=== PATIENT | female | born 1945 | race Caucasian/White ===

== ENCOUNTER → 2022-02-16 | Outpatient (CLI) | payer OTHER ==
[~2022-02-16] MED LIST: AMLO5; ATOR40TA; BISHYD5; BISO5; OXYM.05NI; VIT1CAPS12
== END | disposition home or self-care (01) ==
LOC: LAB SHORT 08:18 → LAB 08:18
DX: N93.8 Other specified abnormal uterine and vaginal bleeding (principal)
CPT/HCPCS: 88305

== ENCOUNTER → 2022-02-16 | Outpatient (CLI) | payer OTHER ==
[2022-02-22 11:08] LABS: HPV 16 Negative (Negative); HPV 18 Negative (Negative); HPV OTHER HR TYPES Negative (Negative)
== END | disposition home or self-care (01) ==
LOC: LAB SHORT 12:00
PROVIDERS: Family Medicine
DX: Z12.4 Encounter for screening for malignant neoplasm of cervix (principal)
CPT/HCPCS: 87624; G0145

== ENCOUNTER 2022-05-11 12:31 | Day surgery (SDC) | payer OTHER ==
[~2022-05-11] VITALS: Ht 157.5 cm; Wt 69.7 kg
--- NOTE | 2022-05-11 14:28 | NUR ---
05/11/22 1427 SOFÍA CARRILLO PT WAS UNABLE TO KEEP HER O2 ABOVE 92%. SHE WAS PLACED ON 10L O2 VIA FACE TENT. PT COULD DEEP BREATH AND COUGH AND WAS WIDE AWAKE. VERY PLEASANT PT.
--- NOTE | 2022-05-11 14:55 | NUR ---
05/11/22 1455 Sherice Gill O2. PT AT 96-98% RA.
--- NOTE | 2022-05-12 08:11 | NUR ---
05/12/22 0811 Keya Monique FLUID DEFICENT OF 600ML
== END 2022-05-11 15:39 | disposition home or self-care (01) ==
LOC: ORSCSDS 12:31
PROVIDERS: Obstetrics & Gynecology
PROC: 0UJD8ZZ Inspection of Uterus and Cervix, Via Natural or Artificial Opening Endoscopic (ICD-10-PCS; principal; 2022-05-11 14:00)
DX: N95.0 Postmenopausal bleeding (principal); D25.0 Submucous leiomyoma of uterus; I10 Essential (primary) hypertension; E11.9 Type 2 diabetes mellitus without complications; Z79.899 Other long term (current) drug therapy
CPT/HCPCS: 82947; J1100; J2250; J2370; J2405; J2704; J3010; J7120

== ENCOUNTER 2022-06-14 11:43 | Day surgery (SDC) | payer OTHER ==
[~2022-06-14] VITALS: Ht 152.4 cm; Wt 70.6 kg
[2022-06-14] VITALS (14 sets, daily range): BP systolic 103–132; BP diastolic 57–87
--- NOTE | 2022-06-14 14:00 | NUR ---
Ambulatory in Day Surgery. Patient confirms NPO status and agrees with scheduled surgery. Pre-Op teaching done. Pt verbalizes understanding. Patient reports completing Chlorhexadine shower X2 prior to admission to hospital. Lungs clear T/O to Auscultation. History, Chart, Medications and Allergies reviewed before start of procedure. Patient States Post-Procedure ride home has been arranged.
--- NOTE | 2022-06-14 14:50 | NUR ---
06/14/22 1450 Hannah Sol PRIOR TO SURGERY START BOLAND TABLE IN PLACE AND SECURE TO PROTECT PATIENT'S FACE,HEAD, AND INTUBATION TUBE.
--- NOTE | 2022-06-14 19:24 | NUR ---
PT ARRIVED TO UNIT FROM PACU ORIENTED TO USE OF CALL LIGHT. SLEEPY BUT WAKES TO VOICE. REPORTS PAIN WNL. LAP INCISION AND TRANSVERS LOWER ABD INCISION CDI W/DERMABOND. HELADIO PAD CLEAN AND DRY. REPORT GIVEN TO ONCOMING SHIFT.
[2022-06-15 03:59] VITALS: BP 109/65
[2022-06-15 04:57] LABS: BASOPHILS PERCENT AUTO 0 % (0-2); EOSINOPHILS PERCENT AUTO 0 % (0-6); Hematocrit 35.2 % (33.0-51.0); Hemoglobin 12.1 g/dL (11.5-16.0); IMMATURE GRAN ABSOLUTE AUTO 0.06 K/mm3 (0.00-0.10); IMMATURE GRAN PERCENT AUTO 1 % (0-1); LYMPHOCYTES ABSOLUTE AUTO 0.36 K/mm3 (0.84-5.20); LYMPHOCYTES PERCENT AUTO 4 % (21-46); MONOCYTES ABSOLUTE AUTO 0.47 K/mm3 (0.16-1.47); MONOCYTES PERCENT AUTO 5 % (4-13); Mean Corpuscular HGB Conc 34.4 g/dL (31.5-36.5); Mean Corpuscular Volume 90 fL (80-100); Mean Platelet Volume 10.2 fL (9.1-12.4); NEUTROPHILS ABSOLUTE AUTO 8.97 K/mm3 (1.96-9.15); NEUTROPHILS PERCENT AUTO 91 % (41-73); Platelet Count 148 K/mm3 (150-400); RDW Standard Deviation 42.6 fL (35.1-46.3); White Blood Cell Count 9.86 K/mm3 (4.00-11.30)
[2022-06-15 05:26] LABS: Bun/Creatinine Ratio 29.4 (12.0-20.0); Calcium, Blood 8.4 mg/dL (8.5-10.1); Creatinine, Blood 0.78 mg/dL (0.40-1.00); Potassium, Blood 3.8 mmol/L (3.5-5.5)
--- NOTE | 2022-06-15 07:34 | NUR ---
PT DENIED NEED FOR PAIN MEDS EXCEPT SCHEDULED TYLENOL.MOVING WELL IN BED.ALERT AND OFF O2.NO OTHER ACUTE CHANGES. TOLERATING DIET JELLO AND H20.
[2022-06-15 07:46] VITALS: BP 148/67
--- NOTE | 2022-06-15 12:54 | NUR ---
DR MAY IN TO SEE PT.
[2022-06-15] MEDS ORDERED: ACET500 PO (14:10)
[2022-06-15] MEDS ORDERED: IBUP400 PO (14:11)
[2022-06-15] MEDS ORDERED: SIME80CH PO (14:12)
[2022-06-15] MEDS ORDERED: OXAYDO5 M1 PO (14:12)
[2022-06-15] MEDS ORDERED: METF500 PO (14:13)
[2022-06-15 14:30] VITALS: BP 114/67
--- NOTE | 2022-06-15 14:48 | NUR ---
DISCHARGE WENT OVER DISCHARGE INSTRUCTIONS AND PATIENT VERBALIZED UNDERSTANDING. WAS ESCORTED OUT IN A WHEEL CHAIR WITH BELONGINGS AND DISCHARGE PAPERS AND LEFT IN A VEHICLE DRIVEN BY A FRIEND.
== END 2022-06-15 14:47 | disposition home or self-care (01) ==
LOC: ORSCMMR 11:43 → ORD 13:15 → SURS 19:15 → ORSCMMR 06-15 14:47
PROVIDERS: Obstetrics & Gynecology
PROC: 8E0W0CZ Robotic Assisted Procedure of Trunk Region, Open Approach (ICD-10-PCS; principal; 2022-06-14 13:15)
PROC: 0UT70ZZ Resection of Bilateral Fallopian Tubes, Open Approach (ICD-10-PCS; principal; 2022-06-14 13:15)
PROC: 0UT90ZZ Resection of Uterus, Open Approach (ICD-10-PCS; principal; 2022-06-14 13:15)
DX: N95.0 Postmenopausal bleeding (principal); C54.1 Malignant neoplasm of endometrium; D25.9 Leiomyoma of uterus, unspecified; I10 Essential (primary) hypertension; E11.9 Type 2 diabetes mellitus without complications; Z79.4 Long term (current) use of insulin; Z79.899 Other long term (current) drug therapy
CPT/HCPCS: 58150; S2900; 36415; 80048; 82947; 85025; 86850; 86900; 86901; 88309; 94760; A9270; J0690; J1100; J2370; J2405; J2704; J2795; J3010; J7120

== ENCOUNTER → 2022-06-16 | Outpatient (CLI) | payer OTHER ==
[~2022-06-16] MED LIST changes: +ACET500 PO; +IBUP400 PO; +METF500 PO; +OXAYDO5 M1 PO; +SIME80CH PO
[2022-06-16 20:58] LABS: Albumin, Blood 3.6 g/dL (3.4-5.0); Albumin/Globulin Ratio 1.2 (0.8-1.8); Bilirubin, Total 0.8 mg/dL (0.1-1.0); Bun/Creatinine Ratio 31.7 (12.0-20.0); Calcium, Blood 9.1 mg/dL (8.5-10.1); Creatinine, Blood 0.85 mg/dL (0.40-1.00); Globulin, Blood 3.1 g/dL (2.2-4.0); Potassium, Blood 4.1 mmol/L (3.5-5.5); Total Protein, Blood 6.7 g/dL (6.4-8.2)
== END | disposition home or self-care (01) ==
LOC: LAB 14:34 → LAB SHORT 14:34
PROVIDERS: Family Medicine
DX: E11.9 Type 2 diabetes mellitus without complications (principal)
CPT/HCPCS: 80053; 83036

== ENCOUNTER → 2022-08-05 | Outpatient (CLI) | payer OTHER ==
[2022-08-05 10:58] LABS: Calcium, Blood 9.1 mg/dL (8.5-10.1); Creatinine, Blood 0.92 mg/dL (0.40-1.00); Potassium, Blood 3.8 mmol/L (3.5-5.5)
== END ==
LOC: LAB SHORT 10:05 → LAB 10:05
PROVIDERS: Registered Nurse Oncology
DX: C54.8 Malignant neoplasm of overlapping sites of corpus uteri (principal)
CPT/HCPCS: 80048

== ENCOUNTER 2025-01-02 06:18 | Day surgery (SDC) | payer OTHER ==
[~2025-01-02] VITALS: Ht 154.9 cm; Wt 66.0 kg
[~2025-01-02 06:18] MED LIST changes: +Balanced Salt Epinephrine Irrigation Solution 500 mL IR SCH; +Moxifloxacin HCL 0.5 MG/0.1 ML 0.4MLSYR RIGHTEYE SCH; +Ondansetron 4 MG SoluTab MM PRN; +PHENYLEPHRINE\\TROPICAMIDE\\TETRACAINE OPHTHALMIC DILATING SOLN RIGHTEYE PRN; +Povidone-Iodine 450 DROP/30 ML Solution ONE; +Povidone-Iodine 450 DROP/30 ML Solution RIGHTEYE SCH; +Tetracaine HCl/Pf 0.5% Opth Soln 4 ml ONE; +diazePAM 5 MG,diazePAM 2 MG PO SCH
--- NOTE | 2025-01-02 06:59 | NUR ---
01/02/25 0659 Halie Tang PT STATES ANXIETY LEVEL IS 2/10 IN PREOP CALL LIGHT IN HAND PT IS ON CONTIN PULSE OX MONITORING IN PREOP
--- NOTE | 2025-01-02 08:05 | NUR ---
01/02/25 0805 Halie Palacios HR:57 SPO2:100% ON 10L BLOW BY O2 RR:16 BP:121/71
[2025-01-02 08:26] VITALS: BP 138/74
== END 2025-01-02 08:41 | disposition home or self-care (01) ==
LOC: ORSCSDS 06:18
PROVIDERS: Student in an Organized Health Care Education/Training Program
PROC: 08RJ3JZ Replacement of Right Lens with Synthetic Substitute, Percutaneous Approach (ICD-10-PCS; principal; 2025-01-02 08:00)
DX: E11.36 Type 2 diabetes mellitus with diabetic cataract (principal); H25.811 Combined forms of age-related cataract, right eye; Z96.1 Presence of intraocular lens; I10 Essential (primary) hypertension; Z79.899 Other long term (current) drug therapy
CPT/HCPCS: A9270; J2003; V2632